=== PATIENT | male | born 1965 | race Caucasian/White ===

== ENCOUNTER 2016-09-19 01:41 | Emergency (ER) | payer SELFPAY ==
[~2016-09-19] VITALS: Ht 177.8 cm; Wt 83.9 kg
[2016-09-19 02:29] VITALS: BP 166/100
[2016-09-19 04:49] LABS: Acetaminophen < 2.0 ug/mL (10-30); Salicylate < 1.7 mg/dL (2.8-20.0)
[2016-09-19 04:53] LABS: Albumin 3.5 g/dL (3.4-5.0); Alkaline Phosphatase 77 U/L (45-117); Anion Gap 10 (5-15); Aspartate Aminotransferase 25 U/L (15-37); BUN/Creatinine Ratio 16.8; Bilirubin, Total 0.8 mg/dL (0.2-1.0); Blood Urea Nitrogen 19 mg/dL (7-18); Calcium 8.2 mg/dL (8.5-10.1); Carbon Dioxide 25 mmol/L (21-32); Chloride 105 mmol/L (98-107); GFR African American 87 mL/min; GFR Non-African American 72 mL/min; Glucose 133 mg/dL (74-106); Magnesium 2.2 mg/dL (1.6-2.6); Potassium 3.5 mmol/L (3.5-5.1); Sodium 140 mmol/L (136-145); Total Protein 7.5 g/dL (6.4-8.2)
[2016-09-19 05:03] LABS: Basophils # (auto) 0 uL; Basophils % (auto) 0.1 % (0.0-2.0); CONDITION Y; Eosinophils # (auto) 0.2 uL; Eosinophils % (auto) 1.5 % (0.0-7.0); Lymphocytes # (auto) 1.1 uL; Lymphocytes % (auto) 10.5 % (10.0-50.0); Mean Corpuscular Hemoglobin 30.7 pg (28.0-32.0); Mean Corpuscular Volume 87.6 fL (80.0-100.0); Mean Platelet Volume 8.3 fL (7.4-10.4); Monocytes # (auto) 1.1 uL; Monocytes % (auto) 9.9 % (0.0-12.0); Neutrophils # (auto) 8.5 uL; Platelet Count (auto) 294 10^3/uL (140-450); Red Cell Distribution Width 13.4 % (11.6-16.0); White Blood Cell 10.9 10^3/uL (4.4-10.8)
== END 2016-09-19 06:17 | disposition left against medical advice (07) ==
LOC: ER 01:49
DX: R06.02 Shortness of breath (principal); R55 Syncope and collapse; Z53.21 Procedure and treatment not carried out due to patient leaving prior to being seen by health care provider
CPT/HCPCS: 36415; 70450; 71010; 80053; 80320; 80329; 83735; 84484; 85025; 93005

== ENCOUNTER 2018-08-18 07:00 | Emergency (ER) | payer SELFPAY ==
[~2018-08-18] VITALS: Ht 177.8 cm; Wt 83.9 kg
[2018-08-18 07:50] LABS: INR 1.66 (0.9-1.15); Partial Thromboplastin Time 36.9 sec (23.64-32.05)
[2018-08-18 08:29] VITALS: BP 115/76
[2018-08-18] MEDS ORDERED: WARFARIN SODIUM 5 MG TAB PO ONE (17:00)
== END 2018-08-18 08:56 ==
LOC: ER 07:00
DX: Z02.89 Encounter for other administrative examinations (principal)
CPT/HCPCS: 36415; 85610; 85730

== ENCOUNTER 2024-03-22 06:24 | Emergency (ER) | payer BC, MEDICAID ==
[~2024-03-22] VITALS: Ht 177.8 cm; Wt 100.2 kg
[2024-03-22 06:24] VITALS: TEMP 97.5
[2024-03-22 06:35] VITALS: BP 154/80; PULSE 78; RESP 18; O2SAT 94
[2024-03-22] MEDS: FLUORESCEIN SOD OPTH TEST STRIP OP ONE (07:26)
[2024-03-22] MEDS: TETRACAINE HCL 0.5% OPTH(EYE) SOLN 4ML EACHEYE ONE (07:26)
[2024-03-22] MEDS ORDERED: IBUP-1456 PO (07:37)
[2024-03-22] MEDS ORDERED: CIPR0.3S67 OP (07:37)
--- NOTE | 2024-03-22 07:37 | ED.PDOC ---
Eye-HPI HPI Comments A 58 YEAR OLD MALE PRESENTS TO THE ED WITH CHIEF COMPLAINT OF BILATERAL EYE PAIN. PATIENT REPORTS THAT HE HAD BEEN WELDING WITHOUT PROTECTIVE EYE EQUIPMENT YESTERDAY AROUND 3PM, CAUSING HIM TO BURN HIS EYES FROM THE INTENSE LIGHT COMING FROM THE RICE DRIER. PATIENT RELAYS THAT SINCE THEN HE HAS HAD BILATERAL EYE PAIN WITH ASSOCIATED REDNESS AND IRRITATION. 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 PATIENT DENIES ANY VISION LOSS, VISION CHANGE, DIZZINESS, HEADACHE, OR PHOTOPHOBIA. NO OTHER SYMPTOMS REPORTED AT THIS TIME OF CARE. Chief Complaint: Eye Problem Time Seen by MD: 07:30 Primary Care Provider: None Reviewed Notes: Nurses Notes, Medications, Allergies Allergies: Coded Allergies: NO KNOWN ALLERGIES (Unverified , 09/19/16) Home Meds Active Scripts Ibuprofen (Ibuprofen) 800 Mg Tab, 1 TAB PO TID, #30 TAB Prov:YOAN MARTÍNEZ 03/22/24 Ciprofloxacin HCl (Ophth) (Ciprofloxacin Hydrochlori) 0.3 % Hue, 2 DROP OP QID, #5 ML Prov:YOAN MARTÍNEZ 03/22/24 Information Source: Patient Mode of Arrival: Ambulatory Timing: Days Duration: Since onset Prehospital treatment: None Quality: Pain, Red Eye Location: Bilateral Lids: Red Conjunctiva: Injection, Subconjunctival hemorrhag, Clear Cornea: Bilateral eyes Pupils: Normal EOM: Normal Fundus: Normal Slit lamp exam: Corneal abrasion, Positive Anterior chamber: Normal Oropharynx: Normal Onset: Spontaneous Throat Exposed to: None Eye Context Recent: Welding History of: None Last Tetanus: Unknown Associated signs and symptoms: Tearing Past Medical History PAST MEDICAL HISTORY: CAD Past Medical History (Other): LEFT EYE BLIND Surgical History: Denies all surgeries Family History Family History: Unknown Social History Smoker: Non-Smoker Alcohol: Denies ETOH Use Drugs: Denies Drug Use Lives In: Home Constitutional: denies: chills, diaphoresis, fatigue, fever, malaise, sweats, weakness, others EENTM: reports: eye pain, eye redness; denies: blurred vision, double vision, ear bleeding, ear discharge, ear drainage, ear pain, ear ringing, hearing loss, mouth pain, mouth swelling, nasal discharge, nose bleeding, nose congestion, nose pain, photophobia, tearing, throat pain, throat swelling, voice changes, others Respiratory: denies: cough, hemoptysis, orthopnea, SOB at rest, shortness of breath, SOB with excertion, stridor, wheezing, others Cardiovascular: denies: chest pain, dizzy spells, diaphoresis, Dyspnea on exertion, edema, irregular heart beat, left arm pain, lightheadedness, palpitations, PND, syncope, others Gastrointestinal: denies: abdomen distended, abdominal pain, blood streaked bowels, constipated, diarrhea, dysphagia, difficulty swallowing, hematemesis, melena, nausea, poor appetite, poor fluid intake, rectal bleeding, rectal pain, vomiting, others Genitourinary: denies: burning, dysuria, flank pain, frequency, hematuria, incontinence, penile discharge, penile sore, pain, testicle pain, testicle swelling, urgency, others Neurological: denies: dizziness, fainting, headache, left sided numbness, left sided weakness, numbness, paresthesia, pre-existing deficit, right sided numbness, right sided weakness, seizure, speech problems, tingling, tremors, weakness, others Musculoskeletal: denies: back pain, gout, joint pain, joint swelling, muscle pain, muscle stiffness, neck pain, others Integumetry: denies: bruises, change in color, change in hair/nails, dryness, laceration, lesions, lumps, rash, wounds, others Allergic/Immunocompromised: denies: Difficulty Healing, Frequent Infections, Hives, Itching, others Hematologic/Lymphatic: denies: anemia, blood clots, easy bleeding, easy bruising, swollen glands, others Endocrine: denies: excessive hunger, excessive sweating, excessive thirst, excessive urination, flushing, intolerance to cold, intolerance to heat, unexplained weight gain, unexplained weight loss, others Psychiatric: denies: anxiety, bipolar disorder, depression, hopeless, panic disorder, schizophrenia, sleepless, suicidal, others All Other Systems: Reviewed and Negative Physical Exam General Appearance: No Apparent Distress, Normal HEENT: Cornea (L) (WOOD LAMP EXAM: MILD CORNEA ABRASION, NO FB. ), Cornea (R) (WOOD LAMP EXAM: MILD CORNEA ABRASION, NO FB, VISUAL ACUITY: R-20/50. ), Normal ENT Inspection, PERRL/EOMI, Pharynx Normal, TMs Normal Neck: Full Range of Motion, Non-Tender, Normal, Normal Inspection Respiratory: Chest Non-Tender, Lungs Clear, No Accessory Muscle Use, No Respiratory Distress, Normal Breath Sounds Cardiovascular: No Edema, No JVD, No Murmur, No Gallop, Normal Peripheral Pulses, Regular Rate/Rhythm Breast Exam: Deferred Gastrointestinal: No Organomegaly, Non Tender, No Pulsatile Mass, Normal Bowel Sounds, Soft Genitalia: Deferred Pelvic: Deferred Rectal: Deferred Extremities: No calf tenderness, Normal capillary refill, Normal inspection, Normal range of motion, Non-tender, No pedal edema Musculoskeletal : Apperance: Normal Neurologic: Alert, credit card clerk II-XII nml as Tested, No Motor Deficits, Normal Affect, Normal Mood, No Sensory Deficits Cerebellar Function: Normal Reflexes: Normal Skin: Dry, Normal Color, Warm Peripheral Pulses: 2+ carotid (R), 2+ carotid (L) Lymphatic: No Adenopathy Was a procedure done? Was a procedure done?: Yes Sedation Sedation?: No Foreign Body Removal Foreign body in: Eye Anesthetic: Other (TETRACAINE) Prep: Prep (FLUORESCEIN), Saline, Irrigation (BOTH EYES WITH NORMAL SALINE 50ML. ) Procedure: Not Identified (FB, +CORNEA ABRASION OF BOTH EYES. ) Informed consent obtained: No Risks/benefits/alt described: Yes Notes BOTH EYES MILD CORNEAL ABRASION NOTED WITH FLUORESCEIN. EENT DIFF Eye: Conjunctivitis, Corneal Abrasion, Foreign Body-Corneal, Iritis/Uveitis, Ultraviolet Keratitis X-Ray, Labs, Meds, VS Vital Signs Date Time Temp Pulse Resp B/P (MAP) Pulse Ox O2 Delivery O2 Flow Rate FiO2 03/22/24 06:35 97.5 78 18 154/80 (104) 94 03/22/24 06:24 78 18 94 Room Air 03/22/24 06:24 97.5 78 18 154/80 (104) 94 97.5 X-Ray, Labs, Meds, VS Comment EXTERNAL MEDICAL RECORDS REVIEWED: [NONE] INDEPENDENT HISTORIANS: [NONE] SOCIAL DETERMINANTS OF HEALTH: [NONE] LABS ORDERED: NONE REVIEWED AND INTERPRETED RESULTS: NONE IMAGING ORDERED: NONE TREATMENTS ORDERED: TETRACAINE 0.5% EYE DROP, FLUORESCEIN EYE DROPS, TYLENOL 1GM PO PROCEDURES PERFORMED: FLUORESCEIN LAMP TEST CRITICAL CARE TIME: NONE I HAVE DISCUSSED THE PATIENT WITH THE ATTENDING PHYSICIAN DR. PONCE AND HE AGREES WITH THE PATIENT'S PLAN OF CARE AND DISPOSITION. BASED ON HISTORY OF PRESENT ILLNESS, AND PHYSICAL EXAM, PATIENT WILL BE DISCHARGED HOME. DISCUSSED PLAN FOR DISCHARGE HOME WITH RX CIPROFLOXACIN. MEDICATION WARNINGS GIVEN. SHARED DECISION MAKING: DISCUSSED WITH PATIENT THAT THEIR WORKUP WAS NORMAL. PATIENT INSTRUCTED TO FOLLOW UP WITH PRIMARY CARE PROVIDER IN 1-2 DAYS FOR RE- EVALUATION OF SYMPTOMS. PATIENT VERBALIZES UNDERSTANDING TO RETURN TO ED FOR NEW OR WORSENING SYMPTOMS OR IF FOLLOW UP WITH PCP CANNOT BE OBTAINED. PATIENT FEELS COMFORTABLE GOING HOME AT THIS TIME. ALL QUESTIONS ADDRESSED AT TIME OF DISCHARGE.EXTERNAL MEDICAL RECORDS REVIEWED: [NONE] INDEPENDENT HISTORIANS: [NONE] SOCIAL DETERMINANTS OF HEALTH: [NONE] Time of 1ST Reevaluation: 08:00 Reevaluation 1ST: Improved Patient Education/Counseling: Diagnosis, Treatment, Need For Follow Up Family Education/Counseling: Diagnosis, Treatment, No Family Present Medical Screening: No EMC Exist At This Time Departure 1 Departure Time of Disposition: 08:00 Impression: Primary Impression: Photokeratitis of both eyes Additional Impression: Corneal abrasion of both eyes Qualified Codes: S05.01XA - Injury of conjunctiva and corneal abrasion without foreign body, right eye, initial encounter; S05.02XA - Injury of conjunctiva and corneal abrasion without foreign body, left eye, initial encounter Disposition: HOME / SELF CARE / HOMELESS Condition: Stable Additional Instructions: FOLLOW-UP WITH STOCK UNLOADER IN 1- 2 DAYS. TAKE MEDICATIONS PRESCRIBED. RETURN TO ED FOR ANY NEW OR WORSENING SYMPTOMS. e-Prescriptions Ibuprofen (Ibuprofen) 800 Mg Tab 1 TAB PO TID, #30 TAB Prov: YOAN MARTÍNEZ 03/22/24 Ciprofloxacin HCl (Ophth) (Ciprofloxacin Hydrochlori) 0.3 % Hue 2 DROP OP QID, #5 ML Prov: YOAN MARTÍNEZ 03/22/24 Discharged With: Self, Relative Critical Care Note Critical Care Time?: No Stability Stability form required: No Heart Score Heart Score: Heart Score Response (Comments) Value History N/A 0 EKG N/A 0 Age N/A 0 Risk Factors N/A 0 Troponin N/A 0 Total 0 I personally scribed for YOAN MARTÍNEZ ([email or web address]) on 03/22/24 at 07:37. Electronically submitted by Jason Lebron ([email or web address]). I personally scribed for YOAN MARTÍNEZ ([email or web address]) on 03/22/24 at 07:38. Electronically submitted by Jason Lebron ([email or web address]). YOAN MARTÍNEZ Mar 22, 2024 07:37
[2024-03-22] MEDS: ACETAMINOPHEN 500 MG TAB or CAP PO ONE (07:46)
== END 2024-03-22 07:59 | disposition home or self-care (01) ==
LOC: ER 06:24
DX: S05.01XA Injury of conjunctiva and corneal abrasion without foreign body, right eye, initial encounter (principal); S05.02XA Injury of conjunctiva and corneal abrasion without foreign body, left eye, initial encounter; H16.133 Photokeratitis, bilateral; I25.10 Atherosclerotic heart disease of native coronary artery without angina pectoris; Z79.1 Long term (current) use of non-steroidal anti-inflammatories (NSAID); X58.XXXA Exposure to other specified factors, initial encounter; Y93.89 Activity, other specified; Y92.89 Other specified places as the place of occurrence of the external cause; Y99.8 Other external cause status